=== PATIENT | female | born 1970 ===

== ENCOUNTER 2017-04-10 07:10 | Day surgery (SDC) | payer OTHER ==
[2017-04-10] MEDS ORDERED: Lactated Ringer's 500 ML IV ONE (07:56)
[2017-04-10 08:23] VITALS: O2SAT 100
[2017-04-10] MEDS ORDERED: Propofol 10 mg/ml Inj (20 ML) ONE (08:33)
[2017-04-10 09:45] VITALS: BP 108/84; PULSE 64; RESP 11; TEMP 97.9
== END 2017-04-10 10:06 | disposition home or self-care (01) ==
LOC: H.ENDO 07:10
PROVIDERS: ATTEND Internal Medicine Gastroenterology
DX: K29.50 Unspecified chronic gastritis without bleeding (principal); B96.81 Helicobacter pylori [H. pylori] as the cause of diseases classified elsewhere; K92.2 Gastrointestinal hemorrhage, unspecified; K64.8 Other hemorrhoids

== ENCOUNTER 2017-05-11 12:17 | Emergency (ER) | payer OTHER ==
[2017-05-11 12:24] VITALS: O2SAT 99
[2017-05-11] MEDS ORDERED: Sodium Chloride 0.9% 1,000 ML IV STA ×2 (13:01→16:21)
--- NOTE | 2017-05-11 13:04 | ED PDOC ---
HPI: Headache Time Seen by Provider: 05/11/17 13:02 Chief Complaint (Nursing): Headache Chief Complaint (Provider): headache History Per: Patient (46 y/o female brought to ED for evaluation of headache gradual onset x 1 week worsening with exposure to light. Denies any nuchal rigidity/fevers/chills/vomiting. Has h/o headaches similar in symptoms treated with iv medication in [place] (unsure of medication).) Past Medical History Reviewed: Historical Data, Nursing Documentation, Vital Signs Vital Signs: Last Vital Signs Temp 99 F 05/11/17 12:22 Pulse 129 H 05/11/17 12:22 Resp 18 05/11/17 12:22 BP 162/97 H 05/11/17 12:22 Pulse Ox 99 05/11/17 12:22 - Family History Family History: States: No Known Family Hx - Home Medications Home Medications: Ambulatory Orders Medication Instructions Recorded Amoxicillin/Clavulanate [Augmentin 1 tab PO BID #20 tab 05/11/17 875 MG-125 MG] Cetirizine HCl [Zyrtec] 10 mg PO DAILY #30 tab.rapdis 05/11/17 Pseudoephedrine [Sudafed Tab] 60 mg PO Q6 PRN #20 tab 05/11/17 - Allergies Allergies/Adverse Reactions: Allergies Allergy/AdvReac Type Severity Reaction Status Date / Time No Known Allergies Allergy Verified 05/11/17 12:19 Review of Systems ROS Statement: Except As Marked, All Systems Reviewed And Found Negative Physical Exam - Reviewed Nursing Documentation Reviewed: Yes Vital Signs Reviewed: Yes - Physical Exam Appears: Positive for: Well, Non-toxic, No Acute Distress Head Exam: Positive for: ATRAUMATIC, NORMAL INSPECTION, NORMOCEPHALIC Skin: Positive for: Normal Color, Warm, DRY Eye Exam: Positive for: EOMI, Normal appearance, PERRL ENT: Positive for: Normal ENT Inspection Neck: Positive for: Normal, Painless ROM Cardiovascular/Chest: Positive for: Regular Rate, Rhythm Respiratory: Positive for: CNT, Normal Breath Sounds Gastrointestinal/Abdominal: Positive for: Normal Exam, Bowel Sounds, Soft Back: Positive for: Normal Inspection Extremity: Positive for: Normal ROM Neurologic/Psych: Positive for: Alert, Oriented - Laboratory Results Result Diagrams: 05/11/17 16:20 05/11/17 17:21 - ECG O2 Sat by Pulse Oximetry: 99 - Progress ED Course And Treament: NS 1 liter Reglan 10 mg i vx 1 dose upon re-examination, patient states she has had tactile fevers/cough/uri/sore throat x 3 days as well. Notes mild improvement with reglan. Denies any nuchal rigidity. Notes photophobia is minimal. Decadron 10 mg iv x 1 dose Repeat vitals afebrile NS 2nd liter ordered. CXR: NAD Head CT: ethmoid sinus opacification. RE-examined at 19:23pm. Headache resolved. Patient has h/o sinus symptoms ongoing worsening this week. Will give ENT referral. Disposition - Clinical Impression Clinical Impression: Acute ethmoidal sinusitis - Patient ED Disposition Is Patient to be Admitted: No - Disposition Referrals: Mitchell Bruno MD [Staff Provider] - [facility] [Outside] Disposition: Routine/Home Disposition Time: 19:24 Condition: FAIR Prescriptions: Amoxicillin/Clavulanate [Augmentin 875 MG-125 MG] 1 tab PO BID #20 tab Cetirizine HCl [Zyrtec] 10 mg PO DAILY #30 tab.rapdis Pseudoephedrine [Sudafed Tab] 60 mg PO Q6 PRN #20 tab PRN Reason: Nasal Congestion Instructions: Sinusitis (ED) Forms: [facility] (Kyrgyz) Print Language: SOUTH AFRICAN
[2017-05-11 16:18] VITALS: BP 103/61; PULSE 88; RESP 16; TEMP 98.6
[2017-05-11] MEDS ORDERED: Dexamethasone 10 MG in Sodium Chloride 0.9% 50 ML IV STA (16:22)
[2017-05-11 16:37] LABS: BASO # 0.1 K/uL (0.0-0.2); BASO % 0.8 % (0.0-2.0); EOS # 0.1 K/uL (0.0-0.7); EOS % 1.4 % (0.0-4.0); HEMOGLOBIN 11.7 g/dL (12.0-16.0); LYMPH # 0.9 K/uL (1.0-4.3); LYMPH % 10.4 % (20.0-40.0); MEAN CELL VOLUME 91.1 fl (81.0-99.0); MEAN CORPUSCULAR HEMOGLOBIN 29.8 pg (27.0-31.0); MEAN CORPUSCULAR HGB CONC 32.7 g/dL (33.0-37.0); MEAN PLATELET VOLUME 9.7 fl (7.2-11.7); MONO # 0.8 K/uL (0.0-0.8); MONO % 8.6 % (0.0-10.0); NEUT % 78.8 % (50.0-75.0); RBC 3.92 Mil/uL (3.80-5.20); RED CELL DISTRIBUTION WIDTH 12.9 % (11.5-14.5); WHITE BLOOD COUNT 8.9 K/uL (4.8-10.8)
[2017-05-11 16:45] LABS: VENOUS BLOOD GAS BASE EXCESS 2.7 mmol/L (0.0-2.0); VENOUS BLOOD GAS PCO2 50 mmHg (40-60); VENOUS BLOOD GAS PO2 33 mm/Hg (30-55); VENOUS BLOOD PH 7.37 (7.32-7.43)
[2017-05-11 16:49] LABS: BLOOD UREA NITROGEN 10 mg/dl (7-17); CALCIUM 8.5 mg/dL (8.4-10.2); GFR AFRICAN-AMERICAN > 60; GFR NON-AFRICAN AMERICAN > 60
[2017-05-11 16:59] LABS: SQUAMOUS EPITHIAL < 1 /hpf (0-5); URINE BACTERIA RARE (<OCC); URINE BILIRUBIN NEGATIVE (NEGATIVE); URINE BLOOD NEGATIVE (NEGATIVE); URINE CLARITY CLEAR (Clear); URINE COLOR COLORLESS (YELLOW); URINE GLUCOSE (UA) NEG (Normal); URINE LEUKOCYTE ESTERASE NEG Leu/uL (Negative); URINE NITRATE NEGATIVE (NEGATIVE); URINE PROTEIN NEGATIVE (NEGATIVE); URINE UROBILINOGEN 0.2-1.0 mg/dL (0.2-1.0)
[2017-05-11 17:04] LABS: INR 1.2 (0.9-1.2); PARTIAL THROMBOPLASTIN TIME 30.7 Seconds (25.6-37.1); PROTHROMBIN TIME 12.4 Seconds (9.8-13.1)
--- NOTE | 2017-05-11 17:13 | CT ---
PROCEDURE: CT HEAD WITHOUT CONTRAST. HISTORY: headache COMPARISON: None available. TECHNIQUE: Axial computed tomography images were obtained through the head/brain without intravenous contrast. Radiation dose: Total exam DLP = 818.40 mGy-cm. This CT exam was performed using one or more of the following dose reduction techniques: Automated exposure control, adjustment of the mA and/or kV according to patient size, and/or use of iterative reconstruction technique. FINDINGS: HEMORRHAGE: No intracranial hemorrhage. BRAIN: No mass effect or edema. The gleason-white matter differentiation appears intact. Please note that MRI with diffusion imaging is more sensitive in the detection of acute ischemic event. VENTRICLES: No hydrocephalus. CALVARIUM: Unremarkable. PARANASAL SINUSES: Mucosal thickening / opacification of the ethmoid air cells. MASTOID AIR CELLS: Unremarkable as visualized. No inflammatory changes. OTHER FINDINGS: None. IMPRESSION: No acute intracranial pathology identified. Mucosal thickening/opacification of the ethmoid air cells. Correlate clinically for sinusitis.
--- NOTE | 2017-05-11 17:16 | RAD ---
HISTORY: cough/fever COMPARISON: No prior. TECHNIQUE: Chest PA and lateral FINDINGS: LUNGS: No active pulmonary disease. PLEURA: No significant pleural effusion identified. No pneumothorax apparent. CARDIOVASCULAR: No radiographic findings to suggest acute or significant cardiovascular disease. OSSEOUS STRUCTURES: No significant abnormalities. VISUALIZED UPPER ABDOMEN: Normal. OTHER FINDINGS: None. IMPRESSION: No active disease.
[2017-05-11 17:50] LABS: BLOOD UREA NITROGEN 9 mg/dl (7-17); CALCIUM 8.7 mg/dL (8.4-10.2); GFR AFRICAN-AMERICAN > 60; GFR NON-AFRICAN AMERICAN > 60
--- NOTE | 2017-05-12 10:42 | CARD ---
APPROVED REPORT EKG Measurement Heart [id number] <Conclusion> Sinus tachycardia with premature atrial complexes Nonspecific ST and T wave abnormality Abnormal ECG
== END 2017-05-11 19:53 | disposition home or self-care (01) ==
LOC: H.ER 12:17
DX: J32.9 Chronic sinusitis, unspecified (principal)